=== PATIENT | male | born 1980 | race Caucasian/White ===

== ENCOUNTER 2018-09-29 19:38 | Inpatient (IN) | payer OTHER ==
[~2018-09-29] VITALS: Ht 182.9 cm; Wt 78.2 kg
[2018-09-29 20:56] LABS: BASOPHILS # (AUTO) 0.03 x10^3/uL (0-0.1); BASOPHILS % (AUTO) 0 % (0-1); EOSINOPHILS # (AUTO) 0.13 x10^3/uL (0-0.4); EOSINOPHILS % (AUTO) 1 % (1-7); LYMPHOCYTES # (AUTO) 1.19 x10^3/uL (1-3.4); LYMPHOCYTES % (AUTO) 9 % (22-44); MD NO; MEAN CORPUSCULAR HEMOGLOBIN 26.5 pg (27.5-34.5); MEAN CORPUSCULAR VOLUME 80.3 fL (81-97); MEAN PLATELET VOLUME 7.9 fL (7.4-10.4); MONOCYTES # (AUTO) 0.63 x10^3/uL (0.2-0.8); MONOCYTES % (AUTO) 5 % (2-9); NEUTROPHILS # (AUTO) 11.91 x10^3/uL (1.8-6.8); NEUTROPHILS % (AUTO) 86 % (42-75); PLATELET COUNT 386 x10^3/uL (130-400); RED BLOOD COUNT 4.89 x10^6/uL (4.38-5.82); RED CELL DISTRIBUTION WIDTH 14.9 % (9.4-14.8)
[2018-09-29 21:07] LABS: ANION GAP 4 mmol/L (5-15); CALCIUM 8.9 mg/dL (8.5-10.1); CHLORIDE 103 mmol/L (98-107); CREATININE 0.81 mg/dL (0.7-1.3)
[2018-09-29] MEDS ORDERED: OXYcodone/APAP 5/325MG TABLET ONE (21:57)
--- NOTE | 2018-09-29 21:59 | NUR ---
PT MEDICATED PER MAR
[2018-09-29] MEDS ORDERED: OXYcodone/APAP 5/325MG TABLET PO ONE (22:00)
[2018-09-29 22:02] LABS: HCT (SEDRATE) 39.3 % (39.2-51.8)
--- NOTE | 2018-09-29 22:26 | NUR ---
INTERNET CAFE MANAGER AT BEDSIDE FOR BLOOD C/X'S AND LABS
--- NOTE | 2018-09-29 22:42 | NUR ---
PT'S LEVEL OF CARE DECREASED DUE TO INCREASED ORDERS
--- NOTE | 2018-09-29 23:05 | NUR ---
MRI QUESTIONNAIRE COMPLETED AND FAXED
--- NOTE | 2018-09-29 23:36 | NUR ---
PT TO MRI
[2018-09-30] MEDS ORDERED: ONDANSETRON ODT 4 MG PO ONE
[2018-09-30] MEDS ORDERED: ONDANSETRON ODT 4 MG ONE (00:02)
[2018-09-30] MEDS ORDERED: HYDROmorphone 2 MG/ML, 1ML ONE ×2 (00:03→01:30)
--- NOTE | 2018-09-30 00:14 | NUR ---
PT MEDICATED PER MAR
--- NOTE | 2018-09-30 00:40 | NUR ---
RECEIVED REPORT FROM BONG QUISPE TO ASSUME CARE OF PT. AT THIS TIME PT. BROUGHT BACK FROM MRI; PATIENT FINANCIAL COORDINATOR REPORTS THAT PT. WAS REFUSING [address] THROUGH IMAGING.
--- NOTE | 2018-09-30 00:43 | NUR ---
DR. CARLOS UPDATED ON PT. REFUSAL OF MRI AND IS IN TO DISCUSS POC WITH PT. NOW.
--- NOTE | 2018-09-30 01:11 | NUR ---
PT. TAKEN BACK TO MRI AFTER DISCUSSION WITH DR. CARLOS.
[2018-09-30] MEDS ORDERED: HYDROmorphone 1 MG/ML, 1ML INJ IM ONE ×2 (01:30)
--- NOTE | 2018-09-30 01:40 | NUR ---
MRI CALLED AND REPORTED TO DR. CARLOS THAT PT. IS C/O PAIN TOO HIGH TO HANDLE MRI AGAIN. NEW ORDERS RECEIVED AND PT. MEDICATED PER JUL.
[2018-09-30] MEDS ORDERED: GADOBUTROL 7.5 MMOL/7.5 ML PFS ONE (02:06)
--- NOTE | 2018-09-30 02:35 | NUR ---
PT. RETURN FROM MRI AT THIS TIME.
--- NOTE | 2018-09-30 02:40 | NUR ---
PT. RESTING ON GURNEY WITH NADN. PT. VERY DRWOSY; RESPONSIVE TO VERBAL STIMULI. VS UPDATED. ALL SAFETY MEASURES OBSERVED. CALL LIGHT IN REACH.
[2018-09-30] MEDS ORDERED: AMPICILLIN/SULBACTAM 3 GM in SODIUM CHLORIDE 0.9% 100 ML IV ONE (04:00)
[2018-09-30] MEDS ORDERED: VANCOMYCIN PER PHARMACY MC PRN ×2 (04:00→05:00)
[2018-09-30] MEDS ORDERED: VANCOMYCIN 1,500 MG in SODIUM CHLORIDE 0.9% 250 ML IV ONE (04:00)
--- NOTE | 2018-09-30 04:19 | NUR ---
IV ABX INFUSING PER ORDER. BLOOD CULTURES WERE COMPLETED PRIOR. [facility] AT BS TO EVAL PT. FOR ADMISSION.
--- NOTE | 2018-09-30 04:28 | NUR ---
REPORT TO BONG LANGE. FLOOR READY FOR PT. TRANSPORT. SENDING VANCO UP WITH PT. [facility] IS RUNNING NOW. BONG LANGE AWARE OF THIS.
[2018-09-30] MEDS ORDERED: ACETAMINOPHEN 325 MG TABLET PO PRN (05:00)
[2018-09-30] MEDS ORDERED: BISACODYL 10 MG SUPP PR PRN (05:00)
[2018-09-30] MEDS ORDERED: HYDROmorphone 2 MG/ML, 1ML IVPush PRN (05:00)
[2018-09-30] MEDS ORDERED: ONDANSETRON ODT 4 MG PO PRN (05:00)
[2018-09-30] MEDS ORDERED: KETOROLAC 30 MG/1 ML IV PRN (05:00)
[2018-09-30] MEDS ORDERED: POLYETHYLENE GLYCOL 17 GM PACKET PO PRN (05:00)
[2018-09-30] MEDS ORDERED: ENALAPRILAT 1.25 MG/ML, 2ML IVPush PRN (05:00)
[2018-09-30 05:26] VITALS: BP 119/83
[2018-09-30] MEDS: LACTATED RINGERS 1,000 ML IV SCH ×2 (05:37→16:28)
[2018-09-30] MEDS ORDERED: PHARMACOKINETIC CONSULTATION MC ONE (06:00)
[2018-09-30] MEDS ORDERED: PHARMACOKINETIC MONITORING MC PRN (06:00)
[2018-09-30 07:11] VITALS: BP 117/78
[2018-09-30 07:35] LABS: ALANINE AMINOTRANSFERASE 29 U/L (12-78); ALBUMIN 3.2 g/dL (3.4-5.0); ANION GAP 5 mmol/L (5-15); CALCIUM 8.5 mg/dL (8.5-10.1); CHLORIDE 106 mmol/L (98-107); CREATININE 0.62 mg/dL (0.7-1.3)
[2018-09-30 07:42] LABS: ALKALINE PHOSPHATASE 84 U/L (45-117); BILIRUBIN,TOTAL 0.8 mg/dL (0.2-1.0); CREATINE KINASE, TOTAL 106 U/L (39-308)
[2018-09-30] MEDS ORDERED: SENNA/DOCUSATE TABLET PO SCH (09:00)
[2018-09-30] MEDS: CLINDAMYCIN PMX 900MG/50ML 50 ML IV SCH ×2 (09:01→17:19)
[2018-09-30] MEDS ORDERED: ENOXAPARIN 40 MG/0.4 ML SQ SCH (10:00)
[2018-09-30] MEDS: AMPICILLIN/SULBACTAM 3 GM in SODIUM CHLORIDE 0.9% 100 ML IV SCH ×3 (10:42→22:31)
[2018-09-30 14:09] VITALS: BP 104/66
[2018-09-30] MEDS: VANCOMYCIN 1,500 MG in SODIUM CHLORIDE 0.9% 250 ML IV SCH (18:26)
[2018-09-30 19:57] VITALS: BP 107/58
[2018-09-30] MEDS: OXYcodone/APAP 5/325MG TABLET PO PRN (21:42)
[2018-09-30 22:45] LABS: AMPHETAMINE SCREEN, URINE Positive (Negative); BARBITURATE SCREEN, URINE Negative (Negative); BENZODIAZEPINE SCREEN, URINE Negative (Negative); CANNABINOID SCREEN, URINE Negative (Negative); COCAINE SCREEN, URINE Negative (Negative); METHADONE SCREEN, URINE Negative (Negative); OPIATE SCREEN, URINE Positive (Negative)
[2018-10-01] MEDS: CLINDAMYCIN PMX 900MG/50ML 50 ML IV SCH (00:52)
[2018-10-01] MEDS: LACTATED RINGERS 1,000 ML IV SCH (04:31)
[2018-10-01] MEDS: AMPICILLIN/SULBACTAM 3 GM in SODIUM CHLORIDE 0.9% 100 ML IV SCH (04:31)
[2018-10-01 04:34] VITALS: BP 117/74
[2018-10-01 05:34] LABS: BASOPHILS # (AUTO) 0.05 x10^3/uL (0-0.1); BASOPHILS % (AUTO) 0 % (0-1); EOSINOPHILS # (AUTO) 0.18 x10^3/uL (0-0.4); EOSINOPHILS % (AUTO) 2 % (1-7); LYMPHOCYTES # (AUTO) 2.22 x10^3/uL (1-3.4); LYMPHOCYTES % (AUTO) 19 % (22-44); MD NO; MEAN CORPUSCULAR HEMOGLOBIN 26.6 pg (27.5-34.5); MEAN CORPUSCULAR HGB CONC 33.5 g/dL (33.2-36.2); MEAN CORPUSCULAR VOLUME 79.3 fL (81-97); MEAN PLATELET VOLUME 8.1 fL (7.4-10.4); MONOCYTES % (AUTO) 8 % (2-9); NEUTROPHILS # (AUTO) 8.34 x10^3/uL (1.8-6.8); NEUTROPHILS % (AUTO) 71 % (42-75); PLATELET COUNT 315 x10^3/uL (130-400); RED BLOOD COUNT 4.43 x10^6/uL (4.38-5.82); RED CELL DISTRIBUTION WIDTH 14.8 % (9.4-14.8)
[2018-10-01 05:43] LABS: CHLORIDE 113 mmol/L (98-107)
[2018-10-01] MEDS: VANCOMYCIN 1,500 MG in SODIUM CHLORIDE 0.9% 250 ML IV SCH (05:52)
[2018-10-01 06:13] LABS: ALANINE AMINOTRANSFERASE 24 U/L (12-78); ALBUMIN 2.8 g/dL (3.4-5.0); ALKALINE PHOSPHATASE 73 U/L (45-117); ANION GAP 7 mmol/L (5-15); BILIRUBIN,TOTAL 0.8 mg/dL (0.2-1.0); CALCIUM 8.4 mg/dL (8.5-10.1); CREATININE 0.68 mg/dL (0.7-1.3); TOTAL PROTEIN 6.9 g/dL (6.4-8.2)
[2018-10-01] MEDS: OXYcodone/APAP 5/325MG TABLET PO PRN (07:55)
[2018-10-01 08:42] VITALS: BP 123/78
== END 2018-10-01 09:33 | disposition left against medical advice (07) | DRG 603 ==
LOC: ED 22:36 → EDIP 09-30 03:51 → 4NOR 09-30 05:20
PROVIDERS: ADMIT Family Medicine; ATTEND Family Medicine
DX: L02.415 Cutaneous abscess of right lower limb (principal); M60.9 Myositis, unspecified; L03.115 Cellulitis of right lower limb; F17.210 Nicotine dependence, cigarettes, uncomplicated; D50.9 Iron deficiency anemia, unspecified
CPT/HCPCS: 36415; 80048; 80053; 80307; 82550; 83605; 83735; 84100; 84145; 85025; 85651; 86140; 86141; 87040; 87806; 96372; 99285; A9585; G0378; J0295; J1170; J1650; J3370; Q0162; G0475; J7050; J7120